=== PATIENT | female | born 1980 | race Caucasian/White ===

== ENCOUNTER → 2018-01-23 | Day surgery (SDC) | payer OTHER ==
[2018-01-19 13:23] VITALS: Ht 169.5 cm; Wt 50.0 kg
[~2018-01-23] VITALS: Ht 169.5 cm; Wt 50.0 kg
[~2018-01-23] MED LIST: ASPCH81X PO; ATROPINE SULFATE 0.1 MG/ML 5ML SYR IV PRN; BACTRIM PO; BISO5TAB3 PO; BUPIVACAINE 0.5 % 5 MG/1 ML MPF 30ML VIAL ONE; CLC/300 PO; CLINDAMYCIN PHOS 150 MG/ML 2 ML VIAL IV SCH; CTP/1 PO; DEXAMETHASONE SOD INJ 4 MG/ML VIAL ONE; EPP3/2 IM; EpHEDrine SULFATE INJ 50 MG/ML AMP IV PRN; FENTANYL CITRATE INJ 50 MCG/1 ML 2 ML VIAL IV PRN; FENTANYL CITRATE INJ 50 MCG/1 ML 2 ML VIAL ONE; FOLIC ACID PO; FRS/40 PO; HYDR-5688 PO; HYDROCODONE/ACETAMIN 5/325MG TAB PO PRN; KETOROLAC TROMETHAMINE 30 MG/ML VIAL IV. PRN; LACTATED RINGER'S 1000ML 1,000 ML IV SCH; LIDOCAINE HCL 1% 20 ML VIAL ONE; LIDOCAINE HCL 2% 2 ML VIAL (20MG/ML) ONE; MIDAZOLAM HCL 1 MG/ML 2ML VIAL ONE; MoRPHine SULFATE 10 MG/ML CARP/VIAL IV PRN; ONDANSETRON INJ 2 MG/ML 2 ML VIAL ONE; OXYC-57 PO; PANT40TA PO; PRED-301 PO; PROPOFOL IV EMULSION 10 MG/ML 20 ML VIAL IV ONE; SODI650T8 PO; SODIUM CHLORIDE 0.9% 1000ML 1,000 ML IV SCH; TACR1CAP5 PO; TACR5CAP5 PO
--- NOTE | 2018-01-23 08:19 | History & Physical Bridge - [place] ---
H&P Re-Evaluation Bridge Note: I have examined the patient, reviewed the History & Physical and in the interval since the performance of the History & Physical I have noted the following changes of clinical significance: No changes noted
--- NOTE | 2018-01-23 08:25 | Discharge Instructions-SurgCtr ---
Discharge Instructions Date of Service Jan 23, 2018. Visit Reason for Visit: Residual Foreign Body In Soft Tissue - Umbilicus Discharge Discharge Diagnosis / Problem: suture foreign body Discharge Goals Goal(s): Decrease discomfort, Improve function, Improve disease control Medications Stopped Medications Name(s): Aspirin Last dose a week ago. Activity Recommendations Activity Limitations: as noted below Lifting Limitations: gradually increase as tolerated Exercise/Sports Limitations: as tolerated May Resume Sexual Activity: when tolerated Shower/Bathe: tomorrow Anesthesia . Post Anesthesia Instructions: If you have had General Anesthesia or IV Sedation: * Do not drive today. * Resume driving when surgeon permits. * Do not make important decisions or sign legal documents today. * Call surgeon for: 1. Temperature elevations greater than 101 degrees F. 2. Uncontrollable pain. 3. Excessive bleeding. 4. Persistent nausea and vomiting. 5. Medication intolerance (nausea, vomiting or rash). * For nausea and vomiting use only clear liquids such as: tea, soda, bouillon until nausea subsides, then gradually increase diet as tolerated. * If you have any concerns or questions, call your surgeon's office. If physician is unavailable and it is an emergency, call 911 or go to the nearest emergency room. . Instructions / Follow-Up Instructions / Follow-Up SPECIAL CARE INSTRUCTIONS: * Cover incisions and change daily for comfort/drainage. * May use ibuprofen for pain as tolerated. * Expect some swelling and bruising. Call your doctor if: * Temperature above 101 degrees * Pain not relieved by pain medicine ordered * There is increased drainage or redness from any incision * You have any unanswered questions or concerns [phone]. FOLLOW UP VISIT: If not already scheduled, please call the office for a follow-up visit. for next week- wound check, some suture removal OFFICE PHONE NUMBER: Dr. Harding Office Diet Recommendations Home Diet: resume previous diet Pending Studies Studies pending at discharge: no Medical Emergencies . Who to Call and When: Medical Emergencies: If at any time you feel your situation is an emergency, please call 911 immediately. . Non-Emergent Contact Non-Emergency issues call your: Primary Care Provider, Surgeon . . "Provider Documentation" section prepared by Mark Harding. .
--- NOTE | 2018-01-23 08:58 | [facility] Operative Report ---
Operative Report Operative Date Jan 23, 2018. Pre-Operative Diagnosis Residual Foreign body in Soft Tissue at Umbilicus Post-Operative Diagnosis Same suture foreign body Procedure(s) Performed Removal Of Suture Foreign Body at Umbilicus Surgeon Dr. Harding Nps Surgeon(s) Camryn Jorge PA-C Estimated Blood Loss 5cc Findings 2- prolene sutures Drains None Anesthesia Type MAC Complication(s) none Disposition Recovery Room / PACU I attest to the content of the Intraoperative Record and any orders documented therein. Any exceptions are noted below.
[2018-01-23 09:03] VITALS: TEMP 36.5
--- NOTE | 2018-01-23 09:06 | [facility] Operative Report ---
Operative Report Operative Date Jan 23, 2018. Pre-Operative Diagnosis Residual Foreign body in Soft Tissue at Umbilicus Post-Operative Diagnosis Same suture foreign body Procedure(s) Performed Removal Of Suture Foreign Body at Umbilicus Surgeon Dr. Harding Presentation Manager Surgeon(s) Camryn Jorge PA-C Estimated Blood Loss 5cc Specimens 2 prolene sutures Drains None Anesthesia Type MAC Complication(s) none Disposition Recovery Room / PACU Description of Procedure Dr. Harding dictating on 01/23/2018. Patient was brought in the operating room placed in the operating room table in supine position. Her abdomen was prepped and draped in usual fashion around and within her umbilicus. There is a small suture evident In the upper portion of the umbilicus. I was able to grasp this and using a scalpel make an incision down around the suture knots. Suture was dissected free and removed it was a Prolene suture. I was able to palpate an additional suture to the left. I was able to use the scalpel and dissect the suture out and remove the suture. Both sutures were sent for routine pathology. After appropriate hemostasis 5-0 Prolene suture was used to reapproximate the lower portion of the incision. 2-3 cm of the upper incision were left open. A dressing was applied and patient transferred to recovery room in stable condition. My assistant signal maintainer helped with prepping draping exposure of the sutures and closure of the wound. This Dr. Harding dictating on 01/23/2018. I attest to the content of the Intraoperative Record and any orders documented therein. Any exceptions are noted below.
[2018-01-23 10:18] VITALS: BP 146/91; PULSE 59; O2SAT 100
--- NOTE | 2018-01-23 10:24 | Anesthesia Progress Nt - [facility] ---
Anesthesia Post Op Note Date & Time Jan 23, 2018 at 10:24 Vital Signs Vital Signs Past 12 Hours Date Time Temp Pulse Resp B/P (MAP) Pulse Ox O2 Delivery O2 Flow Rate FiO2 01/23/18 10:18 59 16 146/91 (109) 100 Room Air 01/23/18 09:48 92 Nasal Cannula 1 01/23/18 09:43 62 16 134/85 (101) 95 Room Air 01/23/18 09:32 62 16 128/82 (97) 98 Nasal Cannula 2 01/23/18 09:20 60 16 117/74 (88) 98 Nasal Cannula 3 01/23/18 09:13 63 18 112/71 (85) 97 Nasal Cannula 3 01/23/18 09:03 36.5 67 16 108/69 (82) 97 Nasal Cannula 4 01/23/18 07:47 36.6 70 16 177/96 (123) 100 Room Air Notes Mental Status: alert / awake / arousable, participated in evaluation Pt Amnestic to Procedure: Yes Nausea / Vomiting: adequately controlled Pain: adequately controlled Airway Patency, RR, SpO2: stable & adequate BP & HR: stable & adequate Hydration State: stable & adequate Anesthetic Complications: no major complications apparent
== END | disposition home or self-care (01) ==
LOC: X.SURG 07:31
PROVIDERS: ATTEND Surgery
DX: M79.5 Residual foreign body in soft tissue (principal); I12.9 Hypertensive chronic kidney disease with stage 1 through stage 4 chronic kidney disease, or unspecified chronic kidney disease; N18.9 Chronic kidney disease, unspecified; Z88.1 Allergy status to other antibiotic agents; Z98.890 Other specified postprocedural states; Z94.0 Kidney transplant status; Z90.710 Acquired absence of both cervix and uterus

== ENCOUNTER 2021-04-09 20:50 | Inpatient (IN) ==
--- NOTE | 2021-04-09 21:25 | Emergency Department Note ---
Impression & Plan Hypercalcemia, Hypophosphatemia ED Provider Note INFORMANT: Patient ED PROVIDER(S): Omer Aaron MD CHIEF COMPLAINT: Abnormal labs PLAN: Disposition: Admitted Condition: Good Outpatient prescription management: none Referral: None MEDICAL DECISION MAKING: Patient presented to the emergency department because of abnormal diagnostic laboratory testing. She had an IV established. An ECG was performed and showed some sinus tachycardia with LVH but no acute ischemic change. The patient was found to have a slight leukocytosis on CBC with a mild anemia as well. Her chemistry panel revealed a normal renal function however her calcium was elevated and her phosphorus was critically low. The patient was gently hydrated. I attempted multiple times to contact the [place] kidney transplant team but did not receive a return call. I did discuss her phosphorus issue with our pharmacist. Hospital protocol was used to calculate her phosphorus replacement. Neutra-Phos at 0.25 mmol/kg was chosen. The patient will need further management in the hospital. Consultation was made with Dr. Nixon Lima, [facility] hospitalist service. Triage Nursing notes reviewed and agree them. Vital Signs: reviewed and remarkable for borderline tachycardia Differential diagnosis: Hypophosphatemia, hypercalcemia, infection, dehydration, metabolic abnormality, hypo/hyperglycemia, electrolyte disturbance, anemia, hypoxia, cardiac sources, intracerebral event, toxicologic, neurologic, as well as other pathologies. Diagnostics interpreted by me: ECG: Twelve-lead ECG reveals sinus tachycardia 114 bpm. Possible left atrial margin. LVH with repolarization abnormality. No ST elevation. No PVCs. Normal axis. Cardiac Monitoring: Cardiac monitoring ordered by me: The patient was placed on continuous cardiac monitoring and observed. It revealed a normal sinus rhythm at 99 beats per minute without ectopy or evidence of dysrhythmia. Imaging studies: Chest x-ray. Findings: A chest x-ray was performed and revealed no pneumothorax, effusion, infiltrate, pulmonary edema, free air under the diaphragm, or wide mediastinum. Impression: No acute disease. HPI: The patient is a 40 year old female who presents to the Emergency Room with complaints of abnormal labs. This started today and was found by PCP who was screening for electrolyte issues. Pt found to have high calcium and low phos phorus. The patient also notes the following associated symptoms, vomiting a few days which resolved, mild SOB. The patient has been prescribed no relieving factors. Current pain is rated as 0/10. Pt denies LOC, headache, fevers, chills, diaphoresis, visual changes, neck pain, chest pain, abdominal pain, back pain, melena, hematochezia, urinary symptoms, numbness, weakness, lymphadenopathy, rash, or other complaints. ROS: See above HPI for pertinent positives & negatives. A total of 10 systems reviewed and were otherwise negative. PAST MEDICAL HISTORY:See Below , FSGS, dialysis PAST SURGICAL HISTORY:See Below, renal transplant FAMILY HISTORY:See Below SOCIAL HISTORY:See Below, lives with family HOME MEDICATIONS:See Below ALLERGIES:See Below VITALS:See Below PHYSICAL EXAMINATION: GENERAL: Awake, alert, thin-appearing, in no distress HENT: Normocephalic, atraumatic. Oropharynx unremarkable. EYES: Normal conjunctiva. Sclera non-icteric. NECK: Inspection normal. Non-tender. Supple. No nuchal rigidity. FROM. No masses. RESPIRATORY: Clear to auscultation. No wheezes. No rales. Normal respiratory effort. CARDIAC: Normal rate. Normal rhythm. No murmurs. No rubs. Extremities warm and well perfused. Pulses equal. No JVD. fistula in RUE GI: Soft, non-distended. No tenderness to palpation. No rebound or guarding. No masses. RECTAL: Deferred. MUSCULOSKELETAL: Atraumatic. Chest examination reveals no tenderness. The back is symmetrical on inspection without obvious abnormality. There is no CVA tenderness to palpation. No joint edema. LOWER EXTREMITIES: Calves are equal size bilaterally and non-tender. No edema. No discoloration. NEURO: Normal sensorium. No sensory or motor deficits noted. SKIN: No rash or jaundice noted. Omer Aaron MD Past Med/Surg History Medical History A-V fistula right arm Anemia Cardiac arrhythmia Chronic kidney disease (CKD), stage V on dialysis mon-mon-mon DVT (deep venous thrombosis) hx of at perm cath sites---no blood thinners currently FSGS (focal segmental glomerulosclerosis) GERD (gastroesophageal reflux disease) Hypertension IgA nephropathy Insomnia Nausea and vomiting after administration of anesthetic agent Nephrolithiasis Osteoarthritis Valvular regurgitation Surgical History History of angioplasty 2007 @ [facility] [place] History of bilateral tubal ligation History of esophagogastroduodenoscopy (EGD) History of hysterectomy History of laparoscopy x5 for endometriosis and cysts History of nephrectomy s/p BL transplant nephrectomies [facility] 03/2019 History of peritoneal dialysis cath 09/2015--placed and removed History of surgery on arm x6 for fistula placement History of surgical removal of ganglion cyst right foot History of tooth extraction partial lower denture History of wisdom tooth extraction Kidney transplant recipient @ [facility] Status post biopsy of kidney multiple Status post insertion of hemodialysis catheter right IJ tunneled hemodialysis cath 12/22/2005 Family History Mother Family history of reaction to anesthesia severe vomiting Brother Family history of reaction to anesthesia severe vomiting Daughter Family history of reaction to anesthesia severe vomiting Social History Smoking Status: Never smoker Second Hand Exposure: Yes (exboyfriend; parents smoked); Hx Alcohol Use: Yes Alcohol type: hard liquor Hx Substance Use: No Preferred Language: Khmer Communication Ability: Effective Lock Setter Required: No Beliefs That Will Affect Care: None Current Living Situation: Family Current Living Situation Comment: Lives with daughter and grandson Feels Safe at Home: Yes Assistive Devices: Contacts and Denture - Lower Allergies Allergies Allergy/AdvReac Type Severity Reaction Status Date / Time bee venom protein (honey bee) Allergy Severe HIVES Verified 04/09/21 23:24 Penicillins Allergy Intermediate RASH/HIVES Verified 04/09/21 23:25 - HAS REC'D ROCEPHIN BEFORE adhesive Allergy Mild SKIN TURNS Verified 04/09/21 23:25 RAW ciprofloxacin Allergy Mild JOINT/MUSCLE Verified 04/09/21 23:25 PAIN metoclopramide Allergy Mild MUSCLES Verified 04/09/21 23:26 LOCKS UP, ARRYTHMIA, SOB Cipro Allergy Unknown JOINT/MUSCLE Verified 01/23/18 07:45 PAIN Home Meds Home Medications Medication Instructions Recorded Confirmed epinephrine 0.3 mg IM Q3H PRN 03/28/19 04/09/21 pantoprazole 40 mg PO BID 03/28/19 04/09/21 acyclovir 400 mg PO DAILY 02/23/21 04/09/21 gentamicin 2 drp OPHTHALMIC (EYE) BID 02/23/21 04/09/21 magnesium oxide 1,200 mg PO BID 02/23/21 04/09/21 prednisone 5 mg PO DAILY 02/23/21 04/09/21 sod phos di, mono-K phos mono 1 tab PO BID 02/23/21 04/09/21 [Phospha 250 Neutral] sulfamethoxazole-trimethoprim 1 tab PO DAILY 02/23/21 04/09/21 tacrolimus 4 mg PO Q12 02/23/21 04/09/21 albuterol sulfate 2 puff INHALATION Q4 PRN 03/16/21 04/09/21 alprazolam 1 mg PO TID PRN 03/16/21 04/09/21 azathioprine 50 mg PO DAILY 03/16/21 04/09/21 baclofen 10 mg PO BID 03/16/21 04/09/21 cyanocobalamin (vitamin B-12) 1,000 mcg PO DAILY 03/16/21 04/09/21 [Vitamin B-12] fluticasone propionate 2 spray INTRANASAL DAILY 03/16/21 04/09/21 ipratropium-albuterol 3 ml INHALATION QID 03/16/21 04/09/21 ketoconazole 1 applic TOPICAL DAILY 03/16/21 04/09/21 megestrol 0 mg FEEDING TUBE QAM 03/16/21 04/09/21 metoprolol tartrate 25 mg PO DAILY PRN 03/16/21 04/09/21 ondansetron HCl 4 mg PO DAILY PRN 03/16/21 04/09/21 paroxetine HCl 5 mg PO DAILY 03/16/21 04/09/21 sennosides [senna] 8.6 mg PO HS 03/16/21 04/09/21 alum-mag hydroxide-simeth [Mylanta] 0 ml FEEDING TUBE QAM 04/09/21 04/09/21 ascorbic acid (vitamin C) 500 mg PO DAILY 04/09/21 04/09/21 cyanocobalamin (vitamin B-12) 0 mcg PO WK 04/09/21 04/09/21 myqnxgsknkwv-nxww-xqinq acid 1 tab PO DAILY 04/09/21 04/09/21 [Certavite-Antioxidant] simethicone [Gas-X] 80 mg PO BID PRN 04/09/21 04/09/21 tramadol 50 mg PO DAILY PRN 04/09/21 04/09/21 Results & Data (ED) Vital Signs Vital Signs - 24 hr 04/09/21 20:52 04/09/21 21:38 04/09/21 23:31 Temperature 36.7 C Temperature Source Temporal Artery Scan Pulse Rate 120 H 110 H Pulse Rate [Left Finger] 110 H 100 H Pulse Rhythm [Left Finger] Regular Regular Pulse Strength [Left Finger] Normal Normal Respiratory Rate 18 20 16 Respiratory Effort / Characteristics Non-Labored Spontaneous Non-Labored Spontaneous Respiratory Depth Normal Normal Respiratory Pattern Regular Regular Blood Pressure 132/95 Blood Pressure [Left Arm] 125/91 123/80 Blood Pressure Mean 107 Blood Pressure Mean [Left Arm] 102 94 Blood Pressure Position Sitting Blood Pressure Position [Left Arm] Lying Lying Pulse Oximetry 100 99 99 Oxygen Delivery Method Room Air Room Air Room Air Sepsis Recent Fever Within 48 Hours No Sepsis New/Unexplained Change in Mental Status N/A Sepsis Action Taken by Nursing No Action Required Laboratory Data Result diagrams: 04/09/21 22:04 04/09/21 22:04 Lab Results 04/09/21 04/09/21 04/09/21 Range/Units 21:55 21:55 22:04 WBC 12.31 H (4.8-10.8) K/uL RBC 3.26 L (4.2-5.4) M/uL Hgb 11.2 L (12.0-16.0) g/dL Hct 34.2 L (37-47) % MCV 104.9 H (80-100) fL MCH 34.4 H (25-34) pg MCHC 32.7 (32-36) g/dL RDW Std Deviation 77.6 H (36.4-46.3) fL RDW Coeff of Ben 20.3 H (11.5-14.5) % Plt Count 249 (130-400) K/uL MPV 9.6 (7.4-10.4) fL Immature Gran % (Auto) 2.2 % Neut % (Auto) 84.1 % Lymph % (Auto) 4.1 % [place] % (Auto) 9.1 % Eos % (Auto) 0.2 % Baso % (Auto) 0.3 % Neut # (Auto) 10.36 H (1.4-6.5) K/uL Lymph # (Auto) 0.50 L (1.2-3.4) K/uL [place] # (Auto) 1.12 H (0.11-0.59) K/uL Eos # (Auto) 0.02 (0-0.5) K/uL Baso # (Auto) 0.04 (0-0.2) K/uL Immature Gran # (Auto) 0.27 H (0.00-0.02) K/uL Anisocytosis Present Sodium (136-145) mmol/L Potassium (3.5-5.1) mmol/L Chloride (98-107) mmol/L Carbon Dioxide (21-32) mmol/L Anion Gap (3-11) BUN (7-18) mg/dl Creatinine (0.6-1.2) mg/dl Est Cr Clr Drug Dosing ml/min Est GFR ( Amer) ml/min Est GFR (Non-Af Amer) ml/min BUN/Creatinine Ratio (10-20) Glucose (70-99) mg/dl Calcium (8.5-10.1) mg/dl Phosphorus (2.5-4.9) mg/dl Magnesium (1.8-2.4) mg/dl Total Bilirubin (0.2-1) mg/dl AST (15-37) U/L ALT (12-78) U/L Alkaline Phosphatase (45-117) U/L Total Protein (6.4-8.2) gm/dl Albumin (3.4-5.0) gm/dl Globulin (2.5-4.0) gm/dl Albumin/Globulin Ratio (0.9-2) HCG, Qual (Negative) Specimen Hemolysis Urine Color Urine Appearance (Clear) Urine pH (4.5-7.5) Ur Specific [place] (1.000-1.030) Urine Protein (Negative) Urine Glucose (UA) (Negative) Urine Ketones (Negative) Urine Blood (Negative) Urine Nitrite (Negative) Urine Bilirubin (Negative) Urine Urobilinogen (Negative) Ur Leukocyte Esterase (Negative) COVID-19 Eval Order Covid19 at [facility] SARS-CoV-2 (PCR) NEGATIVE (Negative) 04/09/21 04/09/21 04/09/21 Range/Units 22:04 22:04 23:38 WBC (4.8-10.8) K/uL RBC (4.2-5.4) M/uL Hgb (12.0-16.0) g/dL Hct (37-47) % MCV (80-100) fL MCH (25-34) pg MCHC (32-36) g/dL RDW Std Deviation (36.4-46.3) fL RDW Coeff of Ben (11.5-14.5) % Plt Count (130-400) K/uL MPV (7.4-10.4) fL Immature Gran % (Auto) % Neut % (Auto) % Lymph % (Auto) % [place] % (Auto) % Eos % (Auto) % Baso % (Auto) % Neut # (Auto) (1.4-6.5) K/uL Lymph # (Auto) (1.2-3.4) K/uL [place] # (Auto) (0.11-0.59) K/uL Eos # (Auto) (0-0.5) K/uL Baso # (Auto) (0-0.2) K/uL Immature Gran # (Auto) (0.00-0.02) K/uL Anisocytosis Sodium 140 (136-145) mmol/L Potassium 4.9 (3.5-5.1) mmol/L Chloride 112 H (98-107) mmol/L Carbon Dioxide 20 L (21-32) mmol/L Anion Gap 7.0 (3-11) BUN 23 H (7-18) mg/dl Creatinine 0.98 (0.6-1.2) mg/dl Est Cr Clr Drug Dosing 53.2 ml/min Est GFR ( Amer) 82.5 ml/min Est GFR (Non-Af Amer) 71.1 ml/min BUN/Creatinine Ratio 23.2 H (10-20) Glucose 117 H (70-99) mg/dl Calcium 11.0 H (8.5-10.1) mg/dl Phosphorus 0.8 L* (2.5-4.9) mg/dl Magnesium 1.7 L (1.8-2.4) mg/dl Total Bilirubin 0.1 L (0.2-1) mg/dl AST 23 (15-37) U/L ALT 31 (12-78) U/L Alkaline Phosphatase 113 (45-117) U/L Total Protein 6.6 (6.4-8.2) gm/dl Albumin 3.4 (3.4-5.0) gm/dl Globulin 3.2 (2.5-4.0) gm/dl Albumin/Globulin Ratio 1.1 (0.9-2) HCG, Qual Negative (Negative) Specimen Hemolysis Urine Color Dark Yellow Urine Appearance Clear (Clear) Urine pH 7.5 (4.5-7.5) Ur Specific [place] 1.024 (1.000-1.030) Urine Protein Negative (Negative) Urine Glucose (UA) Negative (Negative) Urine Ketones Trace H (Negative) Urine Blood Negative (Negative) Urine Nitrite Negative (Negative) Urine Bilirubin Negative (Negative) Urine Urobilinogen Negative (Negative) Ur Leukocyte Esterase Negative (Negative) COVID-19 Eval Order SARS-CoV-2 (PCR) (Negative) Administered Medications Sodium Chloride (Nss 1000ml) 1,000 mls @ 125 mls/hr IV .Q8H STA Stop: 04/10/21 07:04 Last Admin: 04/09/21 23:29 Dose: 125 mls/hr Documented by: [id number] Discontinued Medications Sodium Chloride (Nss 1000ml) 500 mls @ 999 mls/hr IV .Q31M ONE Stop: 04/09/21 23:35 Last Infusion: 04/10/21 00:18 Dose: 0 mls/hr Documented by: [id number] Admin: 04/09/21 23:29 Dose: 999 mls/hr Documented by: [id number] Discharge Plan Visit Data Chief Complaint: Abnormal Labs/Diagnostic Testing Stated Complaint: ABNORMAL LAB WORK DOC REF ED Provider: Omer Aaron Discharge Problem: Hypercalcemia, Hypophosphatemia Forms Stand Alone Forms: My [facility] Prescriptions Prescriptions: No Action pantoprazole 40 mg Tablet,Delayed Release (Dr/Ec) 40 mg PO BID RF: 0 epinephrine 0.3 mg/0.3 mL Auto-Injector 0.3 mg IM Q3H PRN (Reason: Anaphylaxis) RF: 0 sulfamethoxazole-trimethoprim 400-80 mg tablet 1 tab PO DAILY RF: 0 prednisone 5 mg tablet 5 mg PO DAILY RF: 0 magnesium oxide 400 mg (241.3 mg magnesium) tablet 1,200 mg PO BID RF: 0 gentamicin 0.3 % Drops 2 drp OPHTHALMIC (EYE) BID RF: 0 Phospha 250 Neutral 250 mg tablet 1 tab PO BID RF: 0 acyclovir 200 mg capsule 400 mg PO DAILY RF: 0 tacrolimus 1 mg capsule 4 mg PO Q12 RF: 0 alprazolam 1 mg tablet 1 mg PO TID PRN (Reason: sleep or anxiety) RF: 0 baclofen 10 mg tablet 10 mg PO BID RF: 0 megestrol 400 mg/10 mL (40 mg/mL) suspension 0 mg feeding tube QAM RF: 0 sennosides [senna] 8.6 mg tablet 8.6 mg PO HS RF: 0 paroxetine HCl 10 mg tablet 5 mg PO DAILY RF: 0 azathioprine 50 mg tablet 50 mg PO DAILY RF: 0 metoprolol tartrate 25 mg tablet 25 mg PO DAILY PRN (Reason: Hypertension) RF: 0 fluticasone propionate 50 mcg/actuation [place],Suspension 2 spray INTRANASAL DAILY RF: 0 ondansetron HCl 4 mg tablet 4 mg PO DAILY PRN (Reason: Nausea) RF: 0 cyanocobalamin (vitamin B-12) [Vitamin B-12] 1,000 mcg Tablet 1,000 mcg PO DAILY RF: 0 ipratropium-albuterol 0.5 mg-3 mg(2.5 mg base)/3 mL Solution For Nebulization 3 ml INHALATION QID RF: 0 ketoconazole 2 % shampoo 1 applic TOPICAL DAILY RF: 0 albuterol sulfate 90 mcg/actuation Hfa Aerosol Inhaler 2 puff INHALATION Q4 PRN (Reason: chronic bronchitis) RF: 0 ascorbic acid (vitamin C) 500 mg Tablet 500 mg PO DAILY RF: 0 Certavite-Antioxidant 18-400 mg-mcg tablet 1 tab PO DAILY RF: 0 cyanocobalamin (vitamin B-12) 1,000 mcg Tablet 0 mcg PO WK RF: 0 tramadol 50 mg tablet 50 mg PO DAILY PRN (Reason: Pain) RF: 0 alum-mag hydroxide-simeth [Mylanta] 200-200-20 mg/5 mL Suspension 0 ml feeding tube QAM RF: 0 simethicone [Gas-X] 80 mg Tablet,Chewable 80 mg PO BID PRN (Reason: Gi Upset) RF: 0
[2021-04-09 22:21] LABS: Basophils # (auto) 0.04 K/uL (0-0.2); Basophils % (auto) 0.3 %; Eosinophils # (auto) 0.02 K/uL (0-0.5); Eosinophils % (auto) 0.2 %; Hematocrit (blood only) 34.2 % (37-47); Hemoglobin 11.2 g/dL (12.0-16.0); Immature Granulocytes # (auto) 0.27 K/uL (0.00-0.02); Immature Granulocytes % (auto) 2.2 %; Lymphocytes % (auto) 4.1 %; Mean Corpuscular Hemoglobin 34.4 pg (25-34); Mean Corpuscular Hgb Conc 32.7 g/dL (32-36); Mean Corpuscular Volume 104.9 fL (80-100); Mean Platelet Volume 9.6 fL (7.4-10.4); Monocytes # (auto) 1.12 K/uL (0.11-0.59); Monocytes % (auto) 9.1 %; Neutrophils # (auto) 10.36 K/uL (1.4-6.5); Neutrophils % (auto) 84.1 %; Platelet Count 249 K/uL (130-400); RDW Coefficient of Variation 20.3 % (11.5-14.5); RDW Standard Deviation 77.6 fL (36.4-46.3); Red Blood Count 3.26 M/uL (4.2-5.4); White Blood Count 12.31 K/uL (4.8-10.8)
[2021-04-09 22:45] LABS: Albumin Level 3.4 gm/dl (3.4-5.0); BUN Creatinine Ratio 23.2 (10-20); Creatinine Clr Calc Pharmacy 53.2 ml/min; Est GFR (African American) 82.5 ml/min; Est GFR (Non-African American) 71.1 ml/min; Magnesium 1.7 mg/dl (1.8-2.4); Potassium 4.9 mmol/L (3.5-5.1)
[2021-04-09 22:51] LABS: Anisocytosis Present; Pregnancy Test, Serum Negative (Negative)
[2021-04-09 22:52] LABS: Albumin Globulin Ratio 1.1 (0.9-2); Bilirubin,Total 0.1 mg/dl (0.2-1); Globulin 3.2 gm/dl (2.5-4.0); Phosphorus 0.8 mg/dl (2.5-4.9); Total Protein 6.6 gm/dl (6.4-8.2)
[2021-04-09] MEDS ORDERED: SODIUM CHLORIDE 0.9% 1000ML 500 ML IV ONE (23:05)
[2021-04-09] MEDS ORDERED: SODIUM CHLORIDE 0.9% 1000ML 1,000 ML IV STA (23:05)
[2021-04-09 23:54] LABS: Appearance Urine Clear (Clear); Bilirubin Urine Negative (Negative); Blood Urine Negative (Negative); Color Urine Dark Yellow; Glucose Urine UA Negative (Negative); Ketones Urine Trace (Negative); Leukocyte Esterase Urine Negative (Negative); Nitrite Urine Negative (Negative); Protein Urine Negative (Negative); Specific Gravity Urine 1.024 (1.000-1.030); Urobilinogen Urine Negative (Negative); pH Urine 7.5 (4.5-7.5)
[2021-04-10] MEDS ORDERED: SODIUM PHOSPHATE 12 MMOL in SODIUM CHLORIDE 0.9% 250 ML IV ONE (00:30)
[2021-04-10 01:07] LABS: Thyroid Stimulating Hormone 0.848 uIu/ml (0.300-4.500)
[2021-04-10 01:33] LABS: Partial Thromboplastin Ratio 0.9; Partial Thromboplastin Time 23.2 Seconds (21.0-31.0)
[2021-04-10] MEDS ORDERED: LACTATED RINGER'S 1,000 ML IV ONE (01:46)
[2021-04-10 01:52] LABS: D Dimer 990 ug/L FEU (0-500)
[2021-04-10 02:13] LABS: Troponin I 0.081 ng/ml (0-0.045)
--- NOTE | 2021-04-10 02:19 | History & Physical Report ---
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 as per records status post kidney transplantation x 3 (most recent 01/2021 at [facility]) on chronic immunosuppression regimen/antimicrobial and antiviral prophylaxis hypertension, BP currently elevated secondary to illness Home beta-buzz held due to recent syncopal event attributed to possible orthostasis Left lung nodule as per records (noted on CT chest March 2021) hx COPD, past tobacco abuse hx organ transplant on immunosuppression Malignancy versus PTLD malnutrition on PEG tube feeds chronic anemia, hemoglobin at baseline Steroid induced hyperglycemia (recent outpatient hemoglobin A1c within normal limits) Medical telemetry VQ scan, LE Dopplers for PE work-up (IV dye for CT angio study contraindicated with kidney transplant status as per discussion with [facility] transplant conveyor system dispatcher consumer insights specialist, Dr. Cote at [phone].) IV Heparin until PE ruled out Follow troponin, TTE if with progression Replace phosphorus Initiate Sensipar 30 mg PO daily for tertiary hyperparathyroidism after phosphorus replacement as per discussion with [facility] transplant conveyor system dispatcher. Recheck ionized calcium and intact PTH with a.m. blood work as well as per conveyor system dispatcher. Nephrology consult Re: Hyperparathyroidism Nutrition consult already low BMI Outpatient Pulmonology work-up contemplated for SPN by patient's [facility] health services rn DVT prophylaxis. Heparin Full code Text document was generated using [employer] voice recognition software. It may contain grammatical or spelling errors. Kindly contact undersigned for clarification of any documentation item in question. History of Present Illness Chief Complaint: Abnormal blood work Primary Care Provider: Boubacar Crockett DO History obtained from patient, family, and records. 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 Patient underwent 3rd cadaveric renal transplant procedure at [facility] last February 10, 2021. Had to be hospitalized for 1 month postop as per patient. PEG tube placed for malnutrition. Home beta-buzz due to concerns for syncope secondary to orthostatic hypotension. Outpatient labs last month showed hypophosphatemia, hypercalcemia, elevated intact PTH. Oral phosphate replacement being given outpatient. Outpatient [facility] Nephrology note from 2 weeks ago attributed hypophosphatemia to refeeding syndrome. Patient feeling winded the last few days. Short of breath without cough symptoms or chest pain. Usual abdominal discomfort from PEG tube as per patient. No unusual swelling. Peeing okay as per patient. Patient seen at PCP's office yesterday for follow-up. Abnormal outpatient blood work later noted. Serum calcium noted to be 11.3, serum phosphorus noted to be 1. Patient directed to ER for evaluation Sodium phosphate infusion administered at the ER. Medical History as above Local conveyor system dispatcher is Dr. Lugo. 2.7 cm left lower lobe lung nodule noted on CT chest March 2021. Outpatient PET scan contemplated as per documentation. [facility] Vascular appointment contemplated for nonfunctioning AV fistula. 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 Allergies Allergy/AdvReac Type Severity Reaction Status Date / Time bee venom protein (honey bee) Allergy Severe HIVES Verified 04/09/21 23:24 Penicillins Allergy Intermediate RASH/HIVES Verified 04/09/21 23:25 - HAS REC'D ROCEPHIN BEFORE adhesive Allergy Mild SKIN TURNS Verified 04/09/21 23:25 RAW ciprofloxacin Allergy Mild JOINT/MUSCLE Verified 04/09/21 23:25 PAIN metoclopramide Allergy Mild MUSCLES Verified 04/09/21 23:26 LOCKS UP, ARRYTHMIA, SOB Cipro Allergy Unknown JOINT/MUSCLE Verified 01/23/18 07:45 PAIN Iodinated Contrast Media AdvReac Severe contraindicated Verified 04/10/21 02:08 with new kidney transplant status Home Medications Medication Instructions Recorded Confirmed Type epinephrine 0.3 mg IM Q3H PRN 03/28/19 04/09/21 History pantoprazole 40 mg PO BID 03/28/19 04/09/21 History acyclovir 400 mg PO DAILY 02/23/21 04/09/21 History gentamicin 2 drp OPHTHALMIC (EYE) BID 02/23/21 04/09/21 History magnesium oxide 1,200 mg PO BID 02/23/21 04/09/21 History prednisone 5 mg PO DAILY 02/23/21 04/09/21 History sod phos di, mono-K phos mono 1 tab PO BID 02/23/21 04/09/21 History [Phospha 250 Neutral] sulfamethoxazole-trimethoprim 1 tab PO DAILY 02/23/21 04/09/21 History tacrolimus 4 mg PO Q12 02/23/21 04/09/21 History albuterol sulfate 2 puff INHALATION Q4 PRN 03/16/21 04/09/21 History alprazolam 1 mg PO TID PRN 03/16/21 04/09/21 History azathioprine 50 mg PO DAILY 03/16/21 04/09/21 History baclofen 10 mg PO BID 03/16/21 04/09/21 History cyanocobalamin (vitamin B-12) 1,000 mcg PO DAILY 03/16/21 04/09/21 History [Vitamin B-12] fluticasone propionate 2 spray INTRANASAL DAILY 03/16/21 04/09/21 History ipratropium-albuterol 3 ml INHALATION QID 03/16/21 04/09/21 History ketoconazole 1 applic TOPICAL DAILY 03/16/21 04/09/21 History megestrol 0 mg FEEDING TUBE QAM 03/16/21 04/09/21 History metoprolol tartrate 25 mg PO DAILY PRN 03/16/21 04/09/21 History ondansetron HCl 4 mg PO DAILY PRN 03/16/21 04/09/21 History paroxetine HCl 5 mg PO DAILY 03/16/21 04/09/21 History sennosides [senna] 8.6 mg PO HS 03/16/21 04/09/21 History alum-mag hydroxide-simeth [Mylanta] 0 ml FEEDING TUBE QAM 04/09/21 04/09/21 History ascorbic acid (vitamin C) 500 mg PO DAILY 04/09/21 04/09/21 History cyanocobalamin (vitamin B-12) 0 mcg PO WK 04/09/21 04/09/21 History chzsahayshji-beqk-jxclr acid 1 tab PO DAILY 04/09/21 04/09/21 History [Certavite-Antioxidant] simethicone [Gas-X] 80 mg PO BID PRN 04/09/21 04/09/21 History tramadol 50 mg PO DAILY PRN 04/09/21 04/09/21 History Past Med/Surg History Medical History A-V fistula right arm Anemia Cardiac arrhythmia Chronic kidney disease (CKD), stage V on dialysis mon-mon-mon DVT (deep venous thrombosis) hx of at perm cath sites---no blood thinners currently FSGS (focal segmental glomerulosclerosis) GERD (gastroesophageal reflux disease) Hypertension IgA nephropathy Insomnia Nausea and vomiting after administration of anesthetic agent Nephrolithiasis Osteoarthritis Valvular regurgitation Surgical History History of angioplasty 2007 @ [facility] [place] History of bilateral tubal ligation History of esophagogastroduodenoscopy (EGD) History of hysterectomy History of laparoscopy x5 for endometriosis and cysts History of nephrectomy s/p BL transplant nephrectomies [facility] 03/2019 History of peritoneal dialysis cath 09/2015--placed and removed History of surgery on arm x6 for fistula placement History of surgical removal of ganglion cyst right foot History of tooth extraction partial lower denture History of wisdom tooth extraction Kidney transplant recipient @ [facility] Status post biopsy of kidney multiple Status post insertion of hemodialysis catheter right IJ tunneled hemodialysis cath 12/22/2005 Family History Mother Family history of reaction to anesthesia severe vomiting Brother Family history of reaction to anesthesia severe vomiting Daughter Family history of reaction to anesthesia severe vomiting Social History Smoking Status: Former smoker Cigarettes Per Day: half pack; Smoking End Date: 2012; Second Hand Exposure: No; Do You Dip or Chew Tobacco: No; Tobacco Cessation Education Requested by Patient: No Hx Alcohol Use: No Hx Substance Use: No Preferred Language: Uzbek Communication Ability: Effective Zumba Instructor Required: No Beliefs That Will Affect Care: None Current Living Situation: Parent Current Living Situation Comment: Lives with daughter and grandson Other Information That Helps Us Care for You: No Feels Safe at Home: Yes Safety Concerns: Feels Safe At This Time Assistive Devices: Walker and Wheelchair Review of Systems Review of Systems: As per HPI, all 10 systems reviewed, all other ROS negative Physical Exam Physical Exam: GENERAL: Slightly uncomfortable, chronically ill, underweight, looks older for stated age, no respiratory distress SKIN: Pallor, warm HEENT: Pale palpebral conjunctivae, no ptosis, dry buccal mucosa NECK : Supple, no tenderness CHEST : Decreased breath sounds, no tenderness HEART : Tachycardic, no obvious murmurs ABDOMEN: Some distention, PEG tube in place, minimal central tenderness EXTREMITIES : No LE swelling, no LE tenderness, no other conspicuous deformities noted NEUROLOGIC : Coherent, no facial asymmetry, no other gross focality Results & Data Results & Data ([facility]) Vital Signs (Past 12 Hours) Vital Signs Temp Pulse Pulse Resp BP BP Pulse Ox 04/09/21 23:31 100 H 16 123/80 99 04/09/21 21:38 110 H 110 H 20 125/91 99 04/09/21 20:52 36.7 C 120 H 18 132/95 100 Laboratory Results Laboratory Results WBC 12.31 K/uL (4.8-10.8) H 04/09/21 22:04 RBC 3.26 M/uL (4.2-5.4) L 04/09/21 22:04 Hgb 11.2 g/dL (12.0-16.0) L 04/09/21 22:04 Hct 34.2 % (37-47) L 04/09/21 22:04 MCV 104.9 fL (80-100) H 04/09/21 22:04 MCH 34.4 pg (25-34) H 04/09/21 22:04 MCHC 32.7 g/dL (32-36) 04/09/21 22:04 RDW Std Deviation 77.6 fL (36.4-46.3) H 04/09/21 22:04 RDW Coeff of Ben 20.3 % (11.5-14.5) H 04/09/21 22:04 Plt Count 249 K/uL (130-400) 04/09/21 22:04 MPV 9.6 fL (7.4-10.4) 04/09/21 22:04 Immature Gran % (Auto) 2.2 % 04/09/21 22:04 Neut % (Auto) 84.1 % 04/09/21 22:04 Lymph % (Auto) 4.1 % 04/09/21 22:04 [place] % (Auto) 9.1 % 04/09/21 22:04 Eos % (Auto) 0.2 % 04/09/21 22:04 Baso % (Auto) 0.3 % 04/09/21 22:04 Neut # (Auto) 10.36 K/uL (1.4-6.5) H 04/09/21 22:04 Lymph # (Auto) 0.50 K/uL (1.2-3.4) L 04/09/21 22:04 [place] # (Auto) 1.12 K/uL (0.11-0.59) H 04/09/21 22:04 Eos # (Auto) 0.02 K/uL (0-0.5) 04/09/21 22:04 Baso # (Auto) 0.04 K/uL (0-0.2) 04/09/21 22:04 Immature Gran # (Auto) 0.27 K/uL (0.00-0.02) H 04/09/21 22:04 Anisocytosis Present 04/09/21 22:04 APTT 23.2 Seconds (21.0-31.0) 04/10/21 00:57 PTT Ratio 0.9 04/10/21 00:57 D-Dimer 990 ug/L FEU (0-500) H* 04/10/21 00:57 Sodium 140 mmol/L (136-145) 04/09/21 22:04 Potassium 4.9 mmol/L (3.5-5.1) 04/09/21 22:04 Chloride 112 mmol/L (98-107) H 04/09/21 22:04 Carbon Dioxide 20 mmol/L (21-32) L 04/09/21 22:04 Anion Gap 7.0 (3-11) 04/09/21 22:04 BUN 23 mg/dl (7-18) H 04/09/21 22:04 Creatinine 0.98 mg/dl (0.6-1.2) 04/09/21 22:04 Est Cr Clr Drug Dosing 53.2 ml/min 04/09/21 22:04 Est GFR ( Amer) 82.5 ml/min 04/09/21 22:04 Est GFR (Non-Af Amer) 71.1 ml/min 04/09/21 22:04 BUN/Creatinine Ratio 23.2 (10-20) H 04/09/21 22:04 Glucose 117 mg/dl (70-99) H 04/09/21 22:04 Lactate 3.0 mmol/L (0.4-2.0) H* 04/10/21 00:57 Calcium 11.0 mg/dl (8.5-10.1) H 04/09/21 22:04 Phosphorus 0.8 mg/dl (2.5-4.9) L* 04/09/21 22:04 Magnesium 1.7 mg/dl (1.8-2.4) L 04/09/21 22:04 Total Bilirubin 0.1 mg/dl (0.2-1) L 04/09/21 22:04 AST 23 U/L (15-37) 04/09/21 22:04 ALT 31 U/L (12-78) 04/09/21 22:04 Alkaline Phosphatase 113 U/L (45-117) 04/09/21 22:04 Troponin I 0.081 ng/ml (0-0.045) H* 04/09/21 22:04 Total Protein 6.6 gm/dl (6.4-8.2) 04/09/21 22:04 Albumin 3.4 gm/dl (3.4-5.0) 04/09/21 22:04 Globulin 3.2 gm/dl (2.5-4.0) 04/09/21 22:04 Albumin/Globulin Ratio 1.1 (0.9-2) 04/09/21 22:04 Procalcitonin 0.20 ng/ml (0-0.5) 04/09/21 22:04 TSH 0.848 uIu/ml (0.300-4.500) 04/09/21 22:04 HCG, Qual Negative (Negative) 04/09/21 22:04 Specimen Hemolysis 04/09/21 22:04 Urine Color Dark Yellow 04/09/21 23:38 Urine Appearance Clear (Clear) 04/09/21 23:38 Urine pH 7.5 (4.5-7.5) 04/09/21 23:38 Ur Specific [place] 1.024 (1.000-1.030) 04/09/21 23:38 Urine Protein Negative (Negative) 04/09/21 23:38 Urine Glucose (UA) Negative (Negative) 04/09/21 23:38 Urine Ketones Trace (Negative) H 04/09/21 23:38 Urine Blood Negative (Negative) 04/09/21 23:38 Urine Nitrite Negative (Negative) 04/09/21 23:38 Urine Bilirubin Negative (Negative) 04/09/21 23:38 Urine Urobilinogen Negative (Negative) 04/09/21 23:38 Ur Leukocyte Esterase Negative (Negative) 04/09/21 23:38 COVID-19 Eval Order Covid19 at [facility] 04/09/21 21:55 SARS-CoV-2 (PCR) NEGATIVE (Negative) 04/09/21 21:55 Diagnostic Findings Chest x-ray as per my interpretation hyperinflation EKG as per my interpretation : Rate 115, sinus tachycardia, normal axis, LAE, LVH, T wave abnormalities inferior leads Code Status & VTE Plan VTE Prophylaxis Plan VTE Prophylaxis will be ordered: Yes
[2021-04-10] MEDS ORDERED: SODIUM PHOSPHATE 3 MMOL/1 ML 5 ML VIAL IV ONE (02:30)
[2021-04-10] MEDS ORDERED: SODIUM PHOSPHATE 18 MMOL in SODIUM CHLORIDE 0.9% 500 ML IV ONE (03:00)
[2021-04-10] MEDS ORDERED: MAGNESIUM SULFATE / D5W 1 GM/100 ML BAG IV ONE (03:48)
[2021-04-10] MEDS ORDERED: PROMETHAZINE HCL 6.25 MG in SODIUM CHLORIDE 0.9% 50 ML IV PRN (03:48)
[2021-04-10] MEDS ORDERED: ALPRAZolam 0.5 MG TABLET PO PRN (03:48)
[2021-04-10] MEDS ORDERED: HEPARIN SODIUM/DEXTROSE 25,000 UNITS/500 ML BAG IV SCH (03:48)
[2021-04-10] MEDS ORDERED: ACETAMINOPHEN 325 MG TAB PO PRN (03:48)
[2021-04-10] MEDS ORDERED: traMADol HCL 50 MG TABLET PO PRN (03:48)
[2021-04-10] MEDS ORDERED: Heparin IV Adult Wt-Based Low-Dose *NO* Bolus Protocol IV SCH (03:48)
[2021-04-10 05:14] LABS: Basophils # (auto) 0.03 K/uL (0-0.2); Basophils % (auto) 0.2 %; Eosinophils # (auto) 0.03 K/uL (0-0.5); Eosinophils % (auto) 0.2 %; Hematocrit (blood only) 37.1 % (37-47); Hemoglobin 11.9 g/dL (12.0-16.0); Immature Granulocytes # (auto) 0.28 K/uL (0.00-0.02); Immature Granulocytes % (auto) 2.3 %; Lymphocytes # (auto) 0.66 K/uL (1.2-3.4); Lymphocytes % (auto) 5.4 %; Mean Corpuscular Hemoglobin 33.9 pg (25-34); Mean Corpuscular Hgb Conc 32.1 g/dL (32-36); Mean Corpuscular Volume 105.7 fL (80-100); Mean Platelet Volume 10.3 fL (7.4-10.4); Monocytes # (auto) 1.02 K/uL (0.11-0.59); Monocytes % (auto) 8.4 %; Neutrophils % (auto) 83.5 %; Platelet Count 206 K/uL (130-400); RDW Coefficient of Variation 20.4 % (11.5-14.5); RDW Standard Deviation 78.7 fL (36.4-46.3); Red Blood Count 3.51 M/uL (4.2-5.4); White Blood Count 12.12 K/uL (4.8-10.8)
[2021-04-10 05:38] LABS: Anisocytosis Present
[2021-04-10 05:44] LABS: Albumin Level 3.2 gm/dl (3.4-5.0); BUN Creatinine Ratio 24.6 (10-20); Calcium 10.5 mg/dl (8.5-10.1); Creatinine Clr Calc Pharmacy 70.2 ml/min; Est GFR (African American) 113.9 ml/min; Est GFR (Non-African American) 98.3 ml/min; Magnesium 2.1 mg/dl (1.8-2.4); Potassium 4.7 mmol/L (3.5-5.1)
[2021-04-10 05:55] LABS: Phosphorus 1.4 mg/dl (2.5-4.9); Troponin I 0.096 ng/ml (0-0.045)
[2021-04-10] MEDS ORDERED: HEPARIN SOD 5,000 UNIT/0.5 ML VIAL SQ SCH (06:00)
[2021-04-10] MEDS ORDERED: SODIUM CHLORIDE 0.9% 1000ML 1,000 ML IV SCH (06:00)
[2021-04-10] MEDS ORDERED: Nursing to Pharmacy Communication SCH (06:15)
--- NOTE | 2021-04-10 07:38 | Ultrasound Report ---
BILATERAL LOWER EXTREMITY VENOUS DOPPLER HISTORY: Acute pain and swelling of the lower extremities abn dimer COMPARISON STUDY: None. FINDINGS: There is normal compressibility, flow, and augmentation within the bilateral lower extremit y deep venous systems. IMPRESSION: No DVT within the right or left lower extremity. ACT 112: Negative or not required by law. Electronically signed by: Christiano Ruvalcaba M.D. 04/10/2021 7:37 AM
--- NOTE | 2021-04-10 08:19 | XRay Report ---
XR chest 1V portable HISTORY: 40 years-old Female SOB acute shortness of breath COMPARISON: Chest radiograph 09/18/2019 TECHNIQUE: Portable AP view of the chest FINDINGS: Cardiomediastinal and hilar silhouettes are within normal limits. No pneumothorax, large pleural effu sophia, airspace consolidation or overt pulmonary edema. Mild blunting of the right costophrenic angle laterally. Surgical clips project over the right arm and left breast. IMPRESSION: Mild blunting of the right costophrenic angle may represent atelectasis versus trace pleu ral effusion. ACT 112: Negative or not required by law. The above report was generated using voice recognition software. It may contain grammatical, syntax o r spelling errors. Electronically signed by: Christiano Ruvalcaba M.D. 04/10/2021 8:17 AM
[2021-04-10] MEDS ORDERED: azaTHIOprine 50 MG TAB PO SCH (09:00)
[2021-04-10] MEDS ORDERED: SULFA/TRIMETH 400/80MG TAB PO SCH (09:00)
[2021-04-10] MEDS ORDERED: CEROVITE ADV FORMULA TAB PO SCH (09:00)
[2021-04-10] MEDS ORDERED: FLUTICASONE PROPIONATE NA SPR 16 GM BTL SCH (09:00)
[2021-04-10] MEDS ORDERED: MAGNESIUM OXIDE 400 MG TAB PO SCH ×2 (09:00→11:30)
[2021-04-10] MEDS ORDERED: predniSONE 5 MG TAB PO SCH (09:00)
[2021-04-10] MEDS ORDERED: BACLOFEN 10 MG TAB PO SCH (09:00)
[2021-04-10] MEDS ORDERED: PANTOprazole 40 MG TAB PO SCH (09:00)
[2021-04-10] MEDS ORDERED: PARoxetine HCL 10 MG TAB PO SCH (09:00)
[2021-04-10] MEDS ORDERED: TACROLIMUS 1 MG CAP PO SCH (09:00)
[2021-04-10] MEDS ORDERED: GENTAMICIN SULFATE 0.3% OP SOLN 5 ML BTL OP SCH (09:00)
[2021-04-10] MEDS ORDERED: ACYCLOVIR 200 MG CAP PO SCH (09:00)
[2021-04-10] MEDS ORDERED: CYANOCOBALAMIN 500 MCG TABLET (VITAMIN B-12) PO SCH (09:00)
[2021-04-10] MEDS ORDERED: MEGESTROL ACETATE SUSP 400 MG/10 ML UDC GT SCH ×2 (09:00)
--- NOTE | 2021-04-10 10:39 | Nephrology Consultation ---
Date of Consultation April 10, 2021 Assessment & Plan (1) Hyperparathyroidism: Her PTH at clinic yesterday was 226 (was 260 on February 18 shortly after February 10 transplant), in the setting yesterday of phosphate of 1.0 and calcium of 11.3. 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 This condition is associated with higher rates of allograft loss; its pathophysiology is unclear. Start cinacalcet 30 mg daily >> so ordered -Plan to monitor calcium, phosphorus weekly at hospital discharge and with PTH and 25 hydroxy vitamin D every 2 weeks or as per transplant nephrology recommendations -Would not initiate vitamin D supplementation at this time -Cannot rule out need for parathyroidectomy Care coordinated w/ Dr Hernandez Present on Admission?: Yes (2) Hypophosphatemia: Suspect multifactorial but primarily driven by tertiary hyperparathyroidism; refeeding syndrome also on the differential in this malnourished patient -Of primary importance is to maintain her tube feedings and make them phosphorus rich if at all possible; recommend discussing with dietary about optimal formula bearing in mind the risk of refeeding, though refeeding should at this point in the process at least theoretically be of less concern. This patient has already had significant weight gain on tube feedings, going from 75 pounds on March 16 to 98 pounds on April 09. -can also continue OP po phos supplements -check CK once at least, since refeeding can prompt rhabdomyolysis though index of suspicion low here Present on Admission?: Yes (3) Hypercalcemia: likely from tertiary hyperparathyroidism. Cinacalcet as above. No D supplementation indicated at this time. Present on Admission?: Yes (4) SOB (shortness of breath): likely multifactorial >> anxiety may have a big role; dopplers negative; index of suspicion for PE from AV thrombus is low but reasonable to check TTE Present on Admission?: Yes (5) Malnutrition: tube feeds Present on Admission?: Yes (6) Renal transplant, status post: Continue outpatient regimen of tacrolimus, prednisone, and other txplt meds Close f/u w/ [facility] txplt recommended Present on Admission?: Yes (7) AV fistula thrombosis: do not believe this is urgent issue though would need to monitor R proximal arm for infection/cellulitis Present on Admission?: Yes History of Present Illness Reason for Consultation: Hypophosphatemia, hyperparathyroid Requesting Physician: Dr Lima Attending Physician: Michael Hernandez MD History of Present Illness 40-year-old female whom I am asked to evaluate for hypophosphatemia and hyperparathyroid concerns after she was admitted overnight for abnormal labs including outpatient calcium 11.3 and serum phosphorus 1; dyspneic as well on presentation. 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 Patient has been prescribed oral phosphate as an outpatient. [facility] nephrology note from 2 weeks prior to admission attributes hypophosphatemia to refeeding syndrome. Feeding tube placed she reports after her weight dropped below 75 pounds post transplant. Patient takes tube feeds at night, not sure of the type believes that something like "Ossolyte." Patient states that she "feels like shit" due to right upper extremity pain and swelling. Her right upper extremity symptoms are her chief complaint today. Denies current shortness of breath, pain over allograft, decreased urine output, issues with tube feeds, challenges accessing her transplant medications. No diarrhea. In the ER she had sodium phosphate. Sensipar was to start pending PTH levels. CT angio contraindicated d/t renal txplt status; dopplers and TTE ordered. She was started on a heparin drip and given normal saline at 100 mL hourly as well. Allergies Allergy/AdvReac Type Severity Reaction Status Date / Time bee venom protein (honey bee) Allergy Severe HIVES Verified 04/09/21 23:24 Penicillins Allergy Intermediate RASH/HIVES Verified 04/09/21 23:25 - HAS REC'D ROCEPHIN BEFORE adhesive Allergy Mild SKIN TURNS Verified 04/09/21 23:25 RAW ciprofloxacin Allergy Mild JOINT/MUSCLE Verified 04/09/21 23:25 PAIN metoclopramide Allergy Mild MUSCLES Verified 04/09/21 23:26 LOCKS UP, ARRYTHMIA, SOB Cipro Allergy Unknown JOINT/MUSCLE Verified 01/23/18 07:45 PAIN Iodinated Contrast Media AdvReac Severe contraindicated Verified 04/10/21 02:08 with new kidney transplant status Home Medications Medication Instructions Recorded Confirmed Type epinephrine 0.3 mg IM Q3H PRN 03/28/19 04/09/21 History pantoprazole 40 mg PO BID 03/28/19 04/09/21 History acyclovir 400 mg PO DAILY 02/23/21 04/09/21 History gentamicin 2 drp OPHTHALMIC (EYE) BID 02/23/21 04/09/21 History magnesium oxide 1,200 mg PO BID 02/23/21 04/09/21 History prednisone 5 mg PO DAILY 02/23/21 04/09/21 History sod phos di, mono-K phos mono 1 tab PO BID 02/23/21 04/09/21 History [Phospha 250 Neutral] sulfamethoxazole-trimethoprim 1 tab PO DAILY 02/23/21 04/09/21 History tacrolimus 4 mg PO Q12 02/23/21 04/09/21 History albuterol sulfate 2 puff INHALATION Q4 PRN 03/16/21 04/09/21 History alprazolam 1 mg PO TID PRN 03/16/21 04/09/21 History azathioprine 50 mg PO DAILY 03/16/21 04/09/21 History baclofen 10 mg PO BID 03/16/21 04/09/21 History cyanocobalamin (vitamin B-12) 1,000 mcg PO DAILY 03/16/21 04/09/21 History [Vitamin B-12] fluticasone propionate 2 spray INTRANASAL DAILY 03/16/21 04/09/21 History ipratropium-albuterol 3 ml INHALATION QID 03/16/21 04/09/21 History ketoconazole 1 applic TOPICAL DAILY 03/16/21 04/09/21 History megestrol 0 mg FEEDING TUBE QAM 03/16/21 04/09/21 History metoprolol tartrate 25 mg PO DAILY PRN 03/16/21 04/09/21 History ondansetron HCl 4 mg PO DAILY PRN 03/16/21 04/09/21 History paroxetine HCl 5 mg PO DAILY 03/16/21 04/09/21 History sennosides [senna] 8.6 mg PO HS 03/16/21 04/09/21 History alum-mag hydroxide-simeth [Mylanta] 0 ml FEEDING TUBE QAM 04/09/21 04/09/21 History ascorbic acid (vitamin C) 500 mg PO DAILY 04/09/21 04/09/21 History cyanocobalamin (vitamin B-12) 0 mcg PO WK 04/09/21 04/09/21 History ehffwhbpehxa-axot-llltq acid 1 tab PO DAILY 04/09/21 04/09/21 History [Certavite-Antioxidant] simethicone [Gas-X] 80 mg PO BID PRN 04/09/21 04/09/21 History tramadol 50 mg PO DAILY PRN 04/09/21 04/09/21 History Patient History Medical History (Updated 04/10/21 @ 11:25 by Hilda Barger MD, PhD) A-V fistula right arm Anemia Cardiac arrhythmia Chronic kidney disease (CKD), stage V s/p 01/2021 [facility] renal transplant DVT (deep venous thrombosis) hx of at perm cath sites---no blood thinners currently FSGS (focal segmental glomerulosclerosis) GERD (gastroesophageal reflux disease) Hyperparathyroidism Hypertension IgA nephropathy Insomnia Malnutrition Nausea and vomiting after administration of anesthetic agent Nephrolithiasis Osteoarthritis Uses feeding tube PEG placed 02/2021 Valvular regurgitation Surgical History (Updated 04/10/21 @ 10:56 by Hilda Barger MD, PhD) History of angioplasty 2007 @ [facility] [place] History of bilateral tubal ligation History of esophagogastroduodenoscopy (EGD) History of hysterectomy History of laparoscopy x5 for endometriosis and cysts History of nephrectomy s/p BL transplant nephrectomies [facility] 03/2019 History of peritoneal dialysis cath 09/2015--placed and removed History of surgery on arm x6 for fistula placement History of surgical removal of ganglion cyst right foot History of tooth extraction partial lower denture History of wisdom tooth extraction Kidney transplant recipient @ [facility] Renal transplant, status post January 2021 [facility] Status post biopsy of kidney multiple Status post insertion of hemodialysis catheter right IJ tunneled hemodialysis cath 12/22/2005 Family History Mother Family history of reaction to anesthesia severe vomiting Brother Family history of reaction to anesthesia severe vomiting Daughter Family history of reaction to anesthesia severe vomiting Social History Smoking Status: Former smoker Cigarettes Per Day: half pack; Smoking End Date: 2012; Second Hand Exposure: No; Do You Dip or Chew Tobacco: No; Tobacco Cessation Education Requested by Patient: No Hx Alcohol Use: No Hx Substance Use: No Preferred Language: Khmer Communication Ability: Effective Change Of Address Clerk Required: No Beliefs That Will Affect Care: None Current Living Situation: Parent Current Living Situation Comment: Lives with daughter and grandson Other Information That Helps Us Care for You: No Feels Safe at Home: Yes Safety Concerns: Feels Safe At This Time Assistive Devices: None Review of Systems Review of Systems: All systems reviewed & are unremarkable except as noted in HPI & below Physical Exam Constitutional: well developed, + cachectic and + malnourished; no acute d istress Eyes: EOM intact bilaterally ENMT: Ears: no external ear abnormality Nose: no external nose abnormality Mouth: + dry oral mucous membranes Neck: no nuchal rigidity Respiratory: normal respiratory effort Auscultation: lungs clear to auscultation bilaterally and + diminished lung sounds Cardiovascular: Rate/Rhythm: + tachycardic Extremities: + edema (trace-1+ BLE) and + AV fistula (thrombosed RUE w/ poorly demarcated area red, hot not tender; no skin break) Gastrointestinal (Abdomen): Inspection/Auscultation: normal bowel sounds and + scaphoid; abdomen not distended Percussion/Palpation: abdomen soft; abdomen nontender PEG present and has drain in place; also NT allograft Musculoskeletal: Extremities: strength 5/5 throughout Skin: no rashes, warm and dry Neurologic: lacy, fluent speech, no tremor Psychiatric: Orientation: alert and oriented x 3 Speech: normal rate/rhythm/volume of speech Affect: + irritable affect Results & Data ([facility]) Vital Signs (Past 12 Hours) Vital Signs Temp Pulse Pulse Resp BP Pulse Ox 04/10/21 08:00 97 H 04/10/21 06:59 37.4 C 100 H 20 128/87 100 04/10/21 04:49 104 H 04/10/21 03:15 37.4 C 104 H 18 130/90 100 04/10/21 02:30 104 H 18 142/98 H 99 04/10/21 01:30 108 H 18 130/90 99 04/09/21 23:31 100 H 16 123/80 99 Laboratory Results 04/10/21 04:36 04/10/21 04:36 phos 1.4; iCa 1.41, Ca 10.5; mag 2.1; lactate 2.1; TS wnl; OP PTH yesterday 226 Diagnostic Findings CXR IMPRESSION: Mild blunting of the right costophrenic angle may represent atelectasis versus trace pleural effusion. BLE Dopplers negative for DVT (1) AV fistula thrombosis Encounter type: sequela Qualified Code(s): T82.868S - Thrombosis due to vascular prosthetic devices, implants and grafts, sequela
--- NOTE | 2021-04-10 10:52 | Hospitalist Progress Note ---
Date of Service April 10, 2021 Assessment & Plan (1) SOB (shortness of breath): Shortness of breath Unclear etiology Elevated D-dimer Chest x-ray:Mild blunting of the right costophrenic angle may represent atelectasis versus trace pleural effusion. Venous Doppler:No DVT within the right or left lower extremity. Could not obtain CTA to rule out PE given iodine contrast allergy Plan to get VQ scan as able Empirically started on IV heparin given right upper extremity thrombosis Hypophosphatemia Hypercalcemia Secondary to Hyperparathyroidism Elevated PTH Plan to be started on cinacalcet Monitor electrolytes Appreciate nephrology input Avoid calcium, vitamin D supplements Hypophosphatemia likely secondary to hypothyroidism, refeeding syndrome Replace electrolytes as needed Continue IV fluids Plan to resume tube feeds as able H/O ESRD secondary to focal segmental glomerulosclerosis with glomerulonephritis/IgA nephropathy S/P Renal transplantation x 3 (most recent 01/2021 at [facility]) on chronic immunosuppression regimen/antimicrobial and antiviral prophylaxis Continue home medications Given complexity of the patient's condition, patient was offered to be transferred to [facility] but patient denied Patient preferred to sign out AGAINST MEDICAL ADVICE despite explaining the risks and complications She plans to go to [facility] upon discharge in her own transportation Hypertension H/O possible orthostasis BP Variable Monitor Left lung nodule Noted on CT chest March 2021 H/O COPD Past tobacco abuse Follow up as outpatient Lactic Acidosis Improved with IV fluids Malnutrition on PEG tube feeds Elevated Troponin Likely demand ischemia in setting of sinus tachycardia Patient refused further evaluation Denies chest pain Echo pending DVT Px: IV Heparin Code Status Full code Disposition Signed out AGAINST MEDICAL ADVICE Plans to travel to [facility] in her own transforation despite emplaning risks/complications Admission and Anticipated Discharge Date Admission Date: April 10, 2021 Subjective Patient is seen and examined at bedside Complains of right upper extremity swelling, pain secondary to recent blood clot Denies chest pain, dyspnea, dizziness, nausea, abdominal pain Given complexity of the patient's condition, patient was offered to be transferred to [facility] but patient denied Discussed with nephrology Patient preferred to sign out AGAINST MEDICAL ADVICE despite explaining the risks and complications She plans to go to [facility] upon discharge in her own transportation Review of Systems Review of Systems: All systems reviewed & are unremarkable except as noted in HPI & below Physical Exam Physical Exam: Physical Exam: Vitals signs as noted above General Appearance:Thin, frail, no apparent distress Head: normocephalic, Atraumatic Eyes: normal inspection, EOMI Neck: supple, Trachea midline Respiratory/Chest: Normal breath sounds, CTA Cardiovascular: S1, S2, No murmur, Tachycardia Abdomen/GI:Soft, Non tender, Bowel sounds present, +PEG, +Surgical scar Extremities/Musculoskelatal:normal inspection, no edema, RUE: AV fistula, tender, swollen Neurologic/Psych:AAOX3, grossly no focal neurological deficits Skin: normal color, warm Results & Data Results & Data ([facility]) Vital Signs (Past 12 Hours) Vital Signs Temp Pulse Pulse Resp BP Pulse Ox 04/10/21 10:33 37.4 C 100 H 20 128/87 100 04/10/21 08:00 97 H 04/10/21 06:59 37.4 C 100 H 20 128/87 100 04/10/21 04:49 104 H 04/10/21 03:15 37.4 C 104 H 18 130/90 100 04/10/21 02:30 104 H 18 142/98 H 99 04/10/21 01:30 108 H 18 130/90 99 04/09/21 23:31 100 H 16 123/80 99 Laboratory Results Short CBC 04/09/21 04/10/21 Range/Units 22:04 04:36 WBC 12.31 H 12.12 H (4.8-10.8) K/uL Hgb 11.2 L 11.9 L (12.0-16.0) g/dL Hct 34.2 L 37.1 (37-47) % Plt Count 249 206 (130-400) K/uL BMP 04/09/21 04/10/21 22:04 04:36 Sodium 140 141 Potassium 4.9 4.7 Chloride 112 H 114 H Carbon Dioxide 20 L 22 BUN 23 H 18 Creatinine 0.98 0.75 Glucose 117 H 78 Calcium 11.0 H 10.5 H Cardiac Enzymes 04/09/21 04/10/21 Range/Units 22:04 04:36 Troponin I 0.081 H* 0.096 H* (0-0.045) ng/ml Liver Function 04/09/21 04/10/21 Range/Units 22:04 04:36 Total Bilirubin 0.1 L (0.2-1) mg/dl AST 23 (15-37) U/L ALT 31 (12-78) U/L Alkaline Phosphatase 113 (45-117) U/L Albumin 3.4 3.2 L (3.4-5.0) gm/dl Urine 04/09/21 Range/Units 23:38 Urine Color Dark Yellow Urine Appearance Clear (Clear) Urine pH 7.5 (4.5-7.5) Ur Specific [place] 1.024 (1.000-1.030) Urine Protein Negative (Negative) Urine Glucose (UA) Negative (Negative)
--- NOTE | 2021-04-10 15:23 | Discharge Summary ---
Date of Service April 10, 2021 Admission HPI Per Admitting Provider History obtained from patient, family, and records. 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 Patient underwent 3rd cadaveric renal transplant procedure at [facility] last February 10, 2021. Had to be hospitalized for 1 month postop as per patient. PEG tube placed for malnutrition. Home beta-buzz due to concerns for syncope secondary to orthostatic hypotension. Outpatient labs last month showed hypophosphatemia, hypercalcemia, elevated intact PTH. Oral phosphate replacement being given outpatient. Outpatient [facility] Nephrology note from 2 weeks ago attributed hypophosphatemia to refeeding syndrome. Patient feeling winded the last few days. Short of breath without cough symptoms or chest pain. Usual abdominal discomfort from PEG tube as per patient. No unusual swelling. Peeing okay as per patient. Patient seen at PCP's office yesterday for follow-up. Abnormal outpatient blood work later noted. Serum calcium noted to be 11.3, serum phosphorus noted to be 1. Patient directed to ER for evaluation Sodium phosphate infusion administered at the ER. 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 Lugo. 2.7 cm left lower lobe lung nodule noted on CT chest March 2021. Outpatient PET scan contemplated as per documentation. [facility] Vascular appointment contemplated for nonfunctioning AV fistula. 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 Admission Exam Per Admitting Provider Physical Exam Physical Exam: GENERAL: Slightly uncomfortable, chronically ill, underweight, looks older for stated age, no respiratory distress SKIN: Pallor, warm HEENT: Pale palpebral conjunctivae, no ptosis, dry buccal mucosa NECK : Supple, no tenderness CHEST : Decreased breath sounds, no tenderness HEART : Tachycardic, no obvious murmurs ABDOMEN: Some distention, PEG tube in place, minimal central tenderness EXTREMITIES : No LE swelling, no LE tenderness, no other conspicuous deformities noted NEUROLOGIC : Coherent, no facial asymmetry, no other gross focality Principal Diagnosis Hypophosphatemia Hypercalcemia History hyperparathyroidism Elevated D-dimer Cannot rule out pulmonary embolism Lactic acidosis Discharge Data Allergies Allergy/AdvReac Type Severity Reaction Status Date / Time bee venom protein (honey bee) Allergy Severe HIVES Verified 04/09/21 23:24 Penicillins Allergy Intermediate RASH/HIVES Verified 04/09/21 23:25 - HAS REC'D ROCEPHIN BEFORE adhesive Allergy Mild SKIN TURNS Verified 04/09/21 23:25 RAW ciprofloxacin Allergy Mild JOINT/MUSCLE Verified 04/09/21 23:25 PAIN metoclopramide Allergy Mild MUSCLES Verified 04/09/21 23:26 LOCKS UP, ARRYTHMIA, SOB Cipro Allergy Unknown JOINT/MUSCLE Verified 01/23/18 07:45 PAIN Iodinated Contrast Media AdvReac Severe contraindicated Verified 04/10/21 02:08 with new kidney transplant status Consultations 04/10/21 00:23 ED Decision to Admit Stat 04/10/21 03:48 Consult Nephrology Routine Procedures Performed Chest x-ray:Mild blunting of the right costophrenic angle may represent atelectasis versus trace pleural effusion. Venous Doppler:No DVT within the right or left lower extremity. Ordered Studies 04/10/21 02:05 US venous doppler [facility] Urgent Hospital Course (1) SOB (shortness of breath): Shortness of breath Unclear etiology Elevated D-dimer Chest x-ray:Mild blunting of the right costophrenic angle may represent atelectasis versus trace pleural effusion. Venous Doppler:No DVT within the right or left lower extremity. Could not obtain CTA to rule out PE given iodine contrast allergy Plan to get VQ scan as able Empirically started on IV heparin given right upper extremity thrombosis Hypophosphatemia Hypercalcemia Secondary to Hyperparathyroidism Elevated PTH Plan to be started on cinacalcet Monitor electrolytes Appreciate nephrology input Avoid calcium, vitamin D supplements Hypophosphatemia likely secondary to hypothyroidism, refeeding syndrome Replace electrolytes as needed Continue IV fluids Plan to resume tube feeds as able H/O ESRD secondary to focal segmental glomerulosclerosis with glomerulonephritis/IgA nephropathy S/P Renal transplantation x 3 (most recent 01/2021 at [facility]) on chronic immunosuppression regimen/antimicrobial and antiviral prophylaxis Continue home medications Given complexity of the patient's condition, patient was offered to be transferred to [facility] but patient denied Patient preferred to sign out AGAINST MEDICAL ADVICE despite explaining the risks and complications She plans to go to [facility] upon discharge in her own transportation Hypertension H/O possible orthostasis BP Variable Monitor Left lung nodule Noted on CT chest March 2021 H/O COPD Past tobacco abuse Follow up as outpatient Lactic Acidosis Improved with IV fluids Malnutrition on PEG tube feeds Elevated Troponin Likely demand ischemia in setting of sinus tachycardia Patient refused further evaluation Denies chest pain Echo pending DVT Px: IV Heparin Code Status Full code Disposition Signed out AGAINST MEDICAL ADVICE Plans to travel to [facility] in her own transforation despite emplaning risks/complications Total Time Total Time Spent Total Time Spent (In Minutes): 30 minutes Total Time Includes: Examination of the Patient, Discharge Planning, Medication Reconciliation, Communication With Other Providers and Other Discharge Plan Discharge Items Patient Disposition: Against Medical Advice Reason For Visit: SOB, HYPOHOSPHATEMIA Activity: Per Instructions section Non-emergency contact: Primary Care Provider, Surgeon and Assayer Follow-up/Referrals: Boubacar Crockett, [Primary Care Provider] - Pending Studies at Discharge: Yes Stand-Alone Forms: [email or web address], Smoking Cessation Skilled Items Patient informed of condition?: Yes DNR: No Medications and DC Order Prescriptions: Continued pantoprazole 40 mg Tablet,Delayed Release (Dr/Ec) 40 mg PO BID RF: 0 epinephrine 0.3 mg/0.3 mL Auto-Injector 0.3 mg IM Q3H PRN (Reason: Anaphylaxis) RF: 0 sulfamethoxazole-trimethoprim 400-80 mg tablet 1 tab PO DAILY RF: 0 prednisone 5 mg tablet 5 mg PO DAILY RF: 0 magnesium oxide 400 mg (241.3 mg magnesium) tablet 1,200 mg PO BID RF: 0 gentamicin 0.3 % Drops 2 drp OPHTHALMIC (EYE) BID RF: 0 Phospha 250 Neutral 250 mg tablet 1 tab PO BID RF: 0 acyclovir 200 mg capsule 400 mg PO DAILY RF: 0 tacrolimus 1 mg capsule 4 mg PO Q12 RF: 0 alprazolam 1 mg tablet 1 mg PO TID PRN (Reason: sleep or anxiety) RF: 0 baclofen 10 mg tablet 10 mg PO BID RF: 0 megestrol 400 mg/10 mL (40 mg/mL) suspension 0 mg feeding tube QAM RF: 0 sennosides [senna] 8.6 mg tablet 8.6 mg PO HS RF: 0 paroxetine HCl 10 mg tablet 5 mg PO DAILY RF: 0 azathioprine 50 mg tablet 50 mg PO DAILY RF: 0 metoprolol tartrate 25 mg tablet 25 mg PO DAILY PRN (Reason: Hypertension) RF: 0 fluticasone propionate 50 mcg/actuation [place],Suspension 2 spray INTRANASAL DAILY RF: 0 ondansetron HCl 4 mg tablet 4 mg PO DAILY PRN (Reason: Nausea) RF: 0 cyanocobalamin (vitamin B-12) [Vitamin B-12] 1,000 mcg Tablet 1,000 mcg PO DAILY RF: 0 ipratropium-albuterol 0.5 mg-3 mg(2.5 mg base)/3 mL Solution For Nebulization 3 ml INHALATION QID RF: 0 ketoconazole 2 % shampoo 1 applic TOPICAL DAILY RF: 0 albuterol sulfate 90 mcg/actuation Hfa Aerosol Inhaler 2 puff INHALATION Q4 PRN (Reason: chronic bronchitis) RF: 0 ascorbic acid (vitamin C) 500 mg Tablet 500 mg PO DAILY RF: 0 Certavite-Antioxidant 18-400 mg-mcg tablet 1 tab PO DAILY RF: 0 cyanocobalamin (vitamin B-12) 1,000 mcg Tablet 0 mcg PO WK RF: 0 tramadol 50 mg tablet 50 mg PO DAILY PRN (Reason: Pain) RF: 0 alum-mag hydroxide-simeth 200-200-20 mg/5 mL Suspension 0 ml feeding tube QAM RF: 0 simethicone 80 mg Tablet,Chewable 80 mg PO BID PRN (Reason: Gi Upset) RF: 0 Discharge Orders: Left Against Medical Advice (Routine); Ordered 04/10/21 Ordered By: Michael Hernandez Admission Data Admit Date/Time: 04/10/21 01:38 Attending Provider: Michael Hernandez Admit Provider: Nixon Lima Primary Care Provider: Boubacar Crockett Other Providers: Nixon Lima ; Hilda Barger ; Canelo Martinez ; Kaur Antoine ; Jolynn López Japheth E. ; Eliceo Benavidez Other Interventions: Discharge Summary Assessment (RN) Last Done: 04/10/21 10:33
[2021-04-10] MEDS ORDERED: SENNA 8.6 MG TAB PO SCH (21:00)
--- NOTE | 2021-04-11 00:08 | Electrocardiogram Report ---
Test Reason : Blood Pressure : / mmHG Vent. Rate : 114 BPM Atrial Rate : 114 BPM P-R Int : 134 ms QRS Dur : 082 ms QT Int : 326 ms P-R-T Axes : 055 074 268 degrees QTc Int : 449 ms Sinus tachycardia Possible Left atrial enlargement Left ventricular hypertrophy with repolarization abnormality Abnormal ECG When compared with ECG of 23-FEB-2021 10:39, NM interval has increased T wave inversion no longer evident in Anterior leads Confirmed by Dominik Worley ([id number]) on 04/11/2021 12:08:27 AM Referred By: Boubacar Crockett Confirmed By:Dominik Worley
== END 2021-04-10 11:01 | disposition left against medical advice (07) | DRG 643 ==
LOC: ED 20:50 → 2N 04-10 01:38